=== PATIENT | female | born 2000 | race Caucasian/White ===

== ENCOUNTER 2019-02-15 22:34 | Emergency (ER) | payer BC ==
[2019-02-15 23:13] LABS: #Basophils 0.1 thou/uL (0.0-0.2); #Eosinphils 0.1 thou/uL (0.0-0.7); #Lymphocytes 2.2 thou/uL (1.20-3.40); #Monocytes 0.7 thou/uL (0.11-0.59); #Neutrophils 5.6 thou/uL (1.40-6.50); %Basophils 0.7 % (0.0-1.0); %Eosinophils 1.3 % (0.0-10.0); %Lymphocytes 25.8 % (21.0-51.0); %Monocytes 7.5 % (0.0-10.0); %Neutrophils 64.7 % (42.0-75.0); Hemoglobin 14.4 g/dL (12.0-16.0); Mean Corpuscular HGB CONC 32.8 g/dL (32.0-36.0); Mean Corpuscular Hemoglobin 26.7 pg (27.0-31.0); Mean Corpuscular Volume 81.4 fL (78.0-98.0); Mean Platelet Volume 8.2 fL (7.4-10.4); Platelet Count 339 thou/uL (130-400); RBC Distribution Width 13.9 % (11.5-14.5); White Blood Cell (WBC) Count 8.6 thou/uL (4.8-10.8)
[2019-02-15 23:15] LABS: Pregnancy Test - Urine (BHCG) Negative (Negative); Pregu Control Background? CLEAR/WHITE (CLR/WHITE); Pregu Control Bar Appear? YES (CONTROL BAR); Specific Gravity 1.026 (1.002-1.036)
[2019-02-15 23:17] LABS: Bilirubin Negative (Negative); Blood, Urine Large (Negative); Clarity TURBID (Clear); Glucose, Urine (Dipstick) Negative (Negative); Leukocyte Trace (Negative); Nitrite Negative (Negative); Protein, Urine (Dipstick) Trace mg/dL (Neg-Trace); Specific Gravity, Urine 1.027 (1.002-1.036); Urobilinogen 0.2 mg/dL (0.2-1.0)
[2019-02-15 23:18] LABS: Bacteria/HPF None Seen HPF (None Seen); RBC/HPF GREATER THAN 50-TNTC HPF (0-3)
[2019-02-15 23:19] LABS: Hyaline Casts/LPF 4-6 HYALINE CAST LPF (0-3 Hyaline); Pathc Cast-AUWi Flag 3.26 (0-2.49)
[2019-02-15 23:36] LABS: ALT (SGPT) 15 U/L (8-55); AST (SGOT) 18 U/L (5-34); Albumin 4.4 g/dL (3.5-5.0); Alkaline Phosphatase 76 U/L (40-150); Anion Gap 11 mmol/L (10-20); BUN (Urea Nitrogen) 13 mg/dL (7.0-18.7); Bilirubin, Total Less than 0.2 mg/dL (0.2-1.2); Calc. Creatinine Clearance 0 mL/min (70-130); Calcium 9.5 mg/dL (7.8-10.44); Carbon Dioxide 27 mmol/L (22-29); Chloride 108 mmol/L (98-107); Estimated GFR-MDRD Greater than 90; Globulin 3.1 g/dL (2.4-3.5); Glucose 106 mg/dL (70-105); Lipase 27 U/L (8-78); Potassium 3.4 mmol/L (3.5-5.1); Protein, Total 7.5 g/dL (6.0-8.3); Sodium 143 mmol/L (136-145)
[2019-02-15] MEDS ORDERED: Ketorolac Tromethamine 30 MG/ML VIAL ONE (23:36)
[2019-02-15] MEDS ORDERED: Ondansetron PF 4 MG/2 ML Vial ONE (23:36)
--- NOTE | 2019-02-15 23:44 | ULT ---
RIGHT UPPER QUADRANT ULTRASOUND: History: Right upper quadrant pain. FINDINGS: The gallbladder is somewhat small in caliber and partially obscured. No evidence of gallstones, wall thickening or pericholecystic fluid. Common bile duct 0.4 cm. Visualized liver, pancreas, and right k idney are unremarkable. IMPRESSION: Somewhat small caliber gallbladder. No evidence of gallstones or ductal dilatation or other acute pro cess. POS: MARY ELLEN
--- NOTE | 2019-02-16 07:42 | CT ---
PRELIMINARY REPORT: CT Abdomen and Pelvis Without Contrast EXAM DATE/TIME: 02/16/2019 12:23 AM CLINICAL HISTORY: 19 years old, female; Pain; Abdominal pain; Acute; Patient HX: 19/f presents to the ed with C/O intermittent ruq abdominal pain for the last 7-10 days. PT states it is worse after she eats and gracy ent states that pain has been worse over the last 2 days. PT does report vomiting and states that she has had 2 episodes of vomiting in which she noticed a few "specks" of blood. PT states this is after she had multiple episodes of vomiting. PT states she went to [facility] ER and was told she had a fever and a low wbc count and that she should come here. No alleviating factors at this time. Lmp was two weeks ago. PT states she has been having vaginal bleeding for the last week. PT denies vaginal discharge, odor, or itching. PT states she has had vaginal bleeding problems before and had her control changed. TECHNIQUE: Imaging protocol: Axial computed tomography images of the abdomen and pelvis without contrast. Coronal reformatted images were created and reviewed. COMPARISON: No relevant prior studies available. FINDINGS: Lower thorax: No consolidations. ABDOMEN: Liver: No mass. Gallbladder and bile ducts: The gallbladder is collapsed. No ductal dilation. Pancreas: No mass or ductal dilation. Spleen: No mass. Adrenals: No mass. Kidneys and ureters: Cortical scarring right kidney. Nonspecific faintly hyperdense renal pyramids bilaterally without renal stones. No hydronephrosis. No ureteral stones. Stomach and bowel: No obstruction or mucosal thickening. Appendix: Normal appendix. PELVIS: Bladder: Normal. Reproductive: Normal appearance of the uterus and adnexa. ABDOMEN and PELVIS: Intraperitoneal space: No free air or free fluid. Bones/joints: No suspicious bone lesions. Soft tissues: No acute findings. Vasculature: No abdominal aortic aneurysm. Lymph nodes: No lymphadenopathy. IMPRESSION: No acute findings in the abdomen or pelvis. Thank you for allowing us to participate in the care of your patient. Dictated and Authenticated by: Aby Robledo MD 02/16/2019 12:42 AM Central Time ([place] & [place]) FINAL REPORT CT Stone Protocol Final report: I agree with preliminary report given by Dr. Aby Robledo. Transcribed Date/Time: 02/16/2019 8:29 AM
== END 2019-02-16 01:04 | disposition home or self-care (01) ==
LOC: ERS 22:34
DX: R10.11 Right upper quadrant pain (principal); N93.9 Abnormal uterine and vaginal bleeding, unspecified; F90.9 Attention-deficit hyperactivity disorder, unspecified type; F25.9 Schizoaffective disorder, unspecified; F41.9 Anxiety disorder, unspecified
CPT/HCPCS: 74176; 76705; 80053; 81003; 81015; 81025; 83690; 85025; 87804; 96361; 96374; 96375; J1885; J2405